=== PATIENT | male | born 1960 | race Two or more races ===

== ENCOUNTER 2016-08-29 19:03 | Inpatient (IN) | payer MEDICARE, OTHER ==
[2016-08-29] MEDS ORDERED: Haloperidol Lactate 5 mg/mL 1mL Vial IM ONE (19:22)
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
[2016-08-29] MEDS ORDERED: Haloperidol Lactate 5 mg/mL 1mL Vial ONE (19:28)
[2016-08-29 20:50] LABS: % BASOPHILS 0.4 % (0.0-2.0); % EOSINOPHILS 0.2 % (0.0-5.0); % LYMPHOCYTES 7.7 % (20.0-50.0); % MONOCYTES 7.9 % (2.0-10.0); % NEUTROPHILS 83.8 % (40.0-80.0); HEMATOCRIT 39.6 % (39.0-49.0); HEMOGLOBIN 13.6 gm/dL (13.2-17.3); MEAN CELL VOLUME 88.9 fl (80-99); MEAN CORPUSCULAR HEMOGLOBIN 30.5 pg (26.0-30.0); MEAN CORPUSCULAR HGB CONC 34.3 pg (28.0-36.0); MEAN PLATELET VOLUME 7.2 fl; NEUTROPHILE ABSOLUTE 11.1 Th/cmm (1.8-8.0); PLATELET COUNT 167 Th/cmm (150-400); RED BLOOD COUNT 4.45 Mil/cmm (4.30-5.70); WHITE BLOOD COUNT 13.2 Th/cmm (4.8-10.8)
[2016-08-29 21:02] LABS: ACETAMINOPHEN < 10.0 ug/mL (10.0-30.0); ALB/GLOB RATIO 1.1 (1.0-1.8); ALKALINE PHOSPHATASE 58 U/L (34-104); ANION GAP 12.2 (7.0-16.0); BILIRUBIN,TOTAL 0.9 mg/dL (0.3-1.0); BUN - UREA NITROGEN 14 mg/dL (7-25); BUN/CREATININE RATIO 11.7; CALCIUM SERUM 9.2 mg/dL (8.6-10.3); CARBON DIOXIDE 20.5 mEq/L (21.0-31.0); CHLORIDE 104 mEq/L (98-107); CREATININE - SERUM 1.2 mg/dL (0.7-1.3); GLUCOSE 207 mg/dL (70-105); POTASSIUM SERUM 3.7 mEq/L (3.5-5.1); SGOT 233 U/L (13-39); SGPT/ALT 46 U/L (7-52); SODIUM SERUM 133 mEq/L (136-145)
[2016-08-29 22:12] LABS: AMPHETAMINE URINE NEGATIVE (NEGATIVE); BARBITURATES URINE POSITIVE (NEGATIVE)
[2016-08-30 00:52] VITALS: BP 123/79
[2016-08-30] MEDS ORDERED: Magnesium Hydroxide (MOM) 30 mL UDC PO PRN (00:53)
[2016-08-30] MEDS ORDERED: Maalox 30 mL Cup PO PRN (00:53)
[2016-08-30] MEDS: Multivitamin Tab PO SCH (10:30)
--- NOTE | 2016-08-30 15:27 | Diagnostic Imaging Report ---
CT scan of the brain without intravenous contrast HISTORY: Headache, trauma Total DLP equals 745 CTDI equals 37.3 Axial sections were obtained from the base of the skull to the vertex. There is a normal ventricular system size. There is prominence of cerebral sulci and subarachnoid cisterns particularly about the frontal region of the brain collecting a degree of atrophy. No acute parenchymal abnormalities. No intracerebral hemorrhage. No mass effect or shift of midline structures. No extra-axial masses or abnormal fluid collections. IMPRESSION: 1. No acute abnormalities 2. Mild frontal cerebral atrophy
--- NOTE | 2016-08-30 15:28 | Diagnostic Imaging Report ---
CT scan cervical spine HISTORY: Pain, trauma Total DLP equals 494 CTDI equals 23.2 Axial sections were obtained through the cervical spine. Additional sagittal and coronal reformatted images are provided. There is a scoliosis of the cervical spine convexity to the left. This may be positional. Alignment is normal. No acute abnormalities. No fractures. The margins of the cervical spinal cord cannot be clearly visualized. Small spur formation noted about the anterior margins of the bodies of C4-5. The prevertebral soft tissues appear normal. IMPRESSION: 1. No acute abnormalities 2. Degenerative changes
--- NOTE | 2016-08-30 19:21 | History & Physical ---
The patient is a 55-year-old male. PAST MEDICAL HISTORY: Significant for seizure disorder, hypertension, COPD, coronary artery disease, peptic ulcer disease, arthritis, osteoporosis and hypothyroidism. SOCIAL HISTORY: Positive smoking. REVIEW OF SYSTEMS: The patient is very confused, no vomiting, no diarrhea, no melena or hematochezia. PHYSICAL EXAMINATION: GENERAL: Average male in no respiratory distress. VITAL SIGNS: Include a blood pressure of 110/70, respiratory rate of 18. SKIN: Show no cellulitis. HEENT: Normal conjunctivae. NECK: Supple. LUNGS: Shows bilateral rhonchi. ____ crepitations. No bronchial breathing. HEART: ____ present. ABDOMEN: Soft, minimal epigastric tenderness. Bowel sounds present. EXTREMITIES: Arthritis. NEUROLOGIC: The patient is awake with no focal motor deficit. LABORATORY DATA: Include sodium 133, potassium 3.7, chloride 104, bicarbonate ____, BUN 14, creatinine 1.2, glucose of 207, ALT of 233, total bilirubin 0.9. MEDICAL DIAGNOSES: Include diabetes mellitus, hypertension, seizure disorder, hypothyroidism, peptic ulcer disease, arthritis, osteoporosis, chronic obstructive pulmonary disease and coronary artery disease. TREATMENT PLAN: The patient is on Dilantin, Tegretol, Pepcid, Norvasc and Motrin. The patient's blood sugar will be carefully monitored, has no prior history of diabetes. He will have 1800 calories ADA diet. Thank you, Dr. Blair. JOB# [id number]
--- NOTE | 2016-08-31 01:47 | Psychosocial Evaluation ---
IDENTIFYING DATA: The patient is a 55-year-old male resident of [facility]. JUSTIFICATION OF HOSPITALIZATION: The patient is admitted here for his acute agitation. CHIEF COMPLAINT: "I do not know. I should not be in here." HISTORY OF PRESENT ILLNESS: This is the first psychiatric hospitalization to [facility] for this 55-year-old who has been diagnosed to have schizophrenia, chronic paranoid type and the patient is reported to have been getting easily upset, agitated and anxious. The patient has been referred over here for stabilization. I reviewed the chart and tried to interview the patient, but the patient is very irritable, angry and has been screaming and yelling and stating that he should not be in here. The patient has to be given a dose of Haldol in the Emergency Room and along with Ativan. The patient has been brought over here for stabilization. Review of the chart indicated that the patient has been on Invega Sustenna possibly because of the noncompliance with the medications. The patient's sleep and appetite prior to the hospitalization are reported to be fair. The patient's physical examination is requested to be done by Dr. Hopkins and is noted to be significant for hypertension, COPD and hypothyroidism. STRENGTH AND ASSETS: The patient seems to be in good physical health, but is motivated for treatment. MENTAL STATUS EXAMINATION: The patient is a 55-year-old, looking his stated age, superficially cooperative. Eye contact is poor. Mood is noted to be irritable. Affect is constricted. Insight and judgment at this time are noted to be impaired. Impulse control seems to be poor. The patient has paranoid delusions, but denies any command hallucinations. The patient is uncooperative. I could not test the patient's cognitive abilities. The patient's attention span and concentration are noted to be poor. The patient is screaming and yelling during the interview. The patient's behavior is actually a danger to self at this time. DIAGNOSTIC IMPRESSION: AXIS I: Schizophrenia, chronic paranoid type with acute exacerbation. AXIS II: None. AXIS III: Hypertension, COPD and hypothyroidism. IMMEDIATE TREATMENT PLAN: The patient is going to be started on the Risperdal 1 mg b.i.d. and will be closely monitored. Once stabilized, the patient is going to be discharged ____ to be followed up at the [facility] by Dr. ____. JOB# [id number]
[2016-08-31] MEDS: Levothyroxine 0.025 Mg Tab PO SCH (06:41)
[2016-08-31] MEDS: Multivitamin Tab PO SCH (09:07)
--- NOTE | 2016-08-31 22:09 | Progress Notes ---
PSYCHIATRIC PROGRESS NOTE TIME PATIENT SEEN: 10:00 a.m. SUBJECTIVE: Staff was spoken to. The patient is interviewed. Mood is noted to be irritable. Affect is constricted. Coping skills are noted to be poor. Sleep and appetite are also noted to be poor. The patient has been having difficult time to cope with the stress. The patient has been insisting on having his way. The patient is taking only Risperdal and has been refusing to take any other medications. The patient continues to be grossly psychotic. ASSESSMENT: The patient is still psychotic and impulsive. PLAN: To continue the patient with the supportive therapy and followup. JOB# [id number]
[2016-09-01] MEDS: Levothyroxine 0.025 Mg Tab PO SCH (07:07)
[2016-09-01] MEDS: Multivitamin Tab PO SCH (08:43)
[2016-09-01] MEDS ORDERED: Haloperidol Lactate 5 mg/mL 1mL Vial ONE (08:44)
[2016-09-01] MEDS ORDERED: Haloperidol Lactate 5 mg/mL 1mL Vial IM ONE (08:50)
--- NOTE | 2016-09-01 19:40 | Progress Notes ---
PSYCHIATRIC PROGRESS NOTE TIME PATIENT SEEN: 6:45 a.m. SUBJECTIVE: Staff was spoken to. The patient is interviewed. Mood is noted to be irritable. Affect is constricted. Insight and judgment at this time are noted to be still impaired. Impulse control seems to be poor. Coping skills are also noted to be very poor. The patient has been screaming and yelling. The patient is stating that he does not need any other medication. He continues to be very paranoid and is still responding to internal stimuli. The patient has been having difficult time to cope with the stress at this time. The patient is not ready to be discharged to a lower level of care in view of his agitation and psychotic behavior. ASSESSMENT: The patient is still psychotic. PLAN: To continue the patient with the current medications and follow up. JOB# [id number]
--- NOTE | 2016-09-01 23:23 | Consultation ---
REQUESTING PHYSICIAN: Tiana Blair M.D. CONSULTING PSYCHOLOGIST: oJsé Olivo, Ph.D. TYPE OF CONSULTATION: Psychology. HISTORY OF PRESENT ILLNESS: The patient is a 55-year-old male who is being admitted for acute agitation. The patient has previously been diagnosed with schizophrenia, chronic paranoid type according to review of medical records. The following is by review of record as well as the patient's self report. According to review, the patient has been getting easily agitated and was referred here for stabilization. The patient presents as irritable and angry as well as yelling at this content writer at the time of the evaluation. The patient states that he should not be hospitalized. According to record, the patient was given Haldol in the ER along with Ativan and then transferred here to the geropsychiatric unit. The record also indicates that the patient has been noncompliant with medications. The patient is not responding to questions about suicidal ideation, plan or intention. He continues to be yelling and verbally abusive as well as uncontrollably angry. De-escalation was provided. PAST MEDICAL HISTORY: Please see history and physical. PAST PSYCHIATRIC HISTORY: The patient has no history of previous hospitalizations here at [facility]; however, the record indicates the patient has had previous psychiatric hospitalizations and has been under the care of a psychiatrist in the past. CURRENT MEDICATIONS: Please see medication reconciliation sheet. ALLERGIES: No known drug allergies. SUBSTANCE ABUSE HISTORY: The patient did not answer questions about illicit drug use or alcohol or tobacco use. PSYCHOSOCIAL HISTORY: The patient did not answer these questions regarding marital status, educational and occupational history or sikhism affiliation. The patient did not answer questions about family history. The patient is possibly conserved. Medical records will be reviewed by social work program coordinator. MENTAL STATUS EXAMINATION: The patient appears to be his stated age. The patient's attitude is resistant and uncooperative. Eye contact is poor. Speech is loud. The patient is yelling on and off intermittently, most of the clinical interview. Mood is irritable and anxious. Affect is constricted. Thought process shows him to be confused. The patient did not answer questions about auditory or visual hallucinations; however, the patient is presenting with paranoid ideation. The patient did not answer questions to assess for cognitive abilities, i.e., concentration which appears to be poor. The patient is poorly redirectable cognitively and behaviorally. The patient did not participate in the memory assessment. The patient is alert and oriented to self only. The patient's behavior may possibly be a danger to himself at this time. The patient seems to be uncontrollable with respect to behavioral redirection. Impulse control is impaired. The patient did not participate in any evaluation regarding insight and judgment. It appears insight into illness is poor. Judgment is impaired. DIAGNOSTIC IMPRESSION: AXIS I: History of schizophrenia, chronic paranoid type with acute exacerbation. Impulse control disorder, not otherwise specified. AXIS II: Deferred. AXIS III: Hypertension, chronic obstructive pulmonary disease, hypothyroidism. TREATMENT PLAN: The patient has been seen by Dr. Blair for psychiatric evaluation and for the management of the patient's psychotropic medications. The patient is being started on Risperdal 1 mg b.i.d. and will be closely monitored. The patient will most likely return to his previous placement. We will provide reality testing, reality orientation, reality differentiation and reality integration to assist the patient in focusing on reality based thoughts versus delusional and to become compliant with his medication and all aspects of his care and treatment plan. We will provide coping strategies for chronic long-term severe mental illness. Thank you, Dr. Blair for this consult and the opportunity to participate with you in your patient's care. JOB# [id number] MEY
[2016-09-02] MEDS: Levothyroxine 0.025 Mg Tab PO SCH (06:59)
[2016-09-02] MEDS: Multivitamin Tab PO SCH (10:05)
--- NOTE | 2016-09-03 02:49 | Progress Notes ---
TIME PATIENT SEEN: 07:15 a.m. SUBJECTIVE: Staff was spoken to. The patient is interviewed. Mood is noted to be irritable. Affect is constricted. The patient is still testing the limits. The patient is currently on Risperdal and Tegretol and has been able to tolerate the medications, but the patient at times has been trying to refuse and the patient needs to be redirected and encouraged to comply with the treatment at this time. ASSESSMENT: The patient is still psychotic and impulsive. PLAN: To continue the patient with Risperdal and Tegretol and followup. JOB# [id number]
[2016-09-03] MEDS: Levothyroxine 0.025 Mg Tab PO SCH (06:39)
[2016-09-03] MEDS: Multivitamin Tab PO SCH (09:12)
[2016-09-03 09:54] LABS: ALKALINE PHOSPHATASE 61 U/L (34-104); ANION GAP 8.6 (7.0-16.0); BILIRUBIN,TOTAL 0.7 mg/dL (0.3-1.0); BUN - UREA NITROGEN 13 mg/dL (7-25); BUN/CREATININE RATIO 14.4; CALCIUM SERUM 9.4 mg/dL (8.6-10.3); CARBON DIOXIDE 28.2 mEq/L (21.0-31.0); CHLORIDE 104 mEq/L (98-107); CREATININE - SERUM 0.9 mg/dL (0.7-1.3); GLUCOSE 125 mg/dL (70-105); POTASSIUM SERUM 4.8 mEq/L (3.5-5.1); SGOT 74 U/L (13-39); SGPT/ALT 46 U/L (7-52); SODIUM SERUM 136 mEq/L (136-145)
--- NOTE | 2016-09-03 23:26 | Progress Notes ---
TIME PATIENT SEEN: 9:30 a.m. SUBJECTIVE: Staff was spoken to. The patient is interviewed. Mood is noted to be irritable. Affect is constricted. Insight and judgment are very impaired. Impulse control seems to be poor. Coping skills are also noted to be poor. The patient has been having difficult time to cope with the stress. No side effects to the medications are noted. The patient has been refusing and has to be ____ to take the medication. ASSESSMENT: The patient is still psychotic. PLAN: To continue the patient with the current medications and followup. JOB# [id number]
[2016-09-04] MEDS: Levothyroxine 0.025 Mg Tab PO SCH (06:36)
[2016-09-04] MEDS: Multivitamin Tab PO SCH (08:48)
[2016-09-05] MEDS: Levothyroxine 0.025 Mg Tab PO SCH (06:43)
[2016-09-05] MEDS: Multivitamin Tab PO SCH (08:47)
--- NOTE | 2016-09-05 18:20 | Progress Notes ---
PSYCHIATRIC PROGRESS NOTE TIME PATIENT IDENTIFICATION: 1:00 p.m. SUBJECTIVE: Staff was spoken to. The patient is interviewed. Mood is noted to be irritable. Affect is constricted. The patient is still refusing to comply with the medication. The patient has been taking medication on and off. The patient is not presenting with any straight answers. The patient has been having difficult time to cope with the stress. No side effects to the medications are noted at this time. ASSESSMENT: The patient is still psychotic and impulsive. PLAN: To continue the patient with the current medications. I encouraged the patient to verbalize the concerns rather than to act out. JOB# [id number]
--- NOTE | 2016-09-06 06:13 | Progress Notes ---
TIME PATIENT SEEN: 15:00 a.m. SUBJECTIVE: Staff was spoken to. The patient is interviewed. Mood is noted to be irritable. Affect is constricted. Coping skills are noted to be poor. Sleep and appetite are also noted to be poor. The patient is taking medications on and off, but the patient has to be really pressed to take the medications. If the patient continues to be refusing to take the medications this way the patient is going to be possibly placed on Haldol and Haldol Decanoate is going to be considered. The patient still continues to be paranoid, but no aggressive behavior is reported so far. Sleep and appetite are also noted to be fair. Personal hygiene; however, continues to be very poor. JOB# [id number]
[2016-09-06] MEDS: Levothyroxine 0.025 Mg Tab PO SCH (06:47)
[2016-09-06] MEDS: Multivitamin Tab PO SCH (08:06)
--- NOTE | 2016-09-07 01:04 | Progress Notes ---
TIME PATIENT SEEN: 10:30 a.m. SUBJECTIVE: Staff was spoken to. The patient is interviewed. Mood is noted to be anxious. The patient's coping skills are noted to be poor. The patient has paranoia since the patient has been placed on the Haldol. The patient has been doing a little better. No side effects to the medications are noted at this time. The patient's sleep and appetite are noted to be fair. The patient's coping skills are noted to be improving. ASSESSMENT: The patient's psychosis is resolving. PLAN: To discharge the patient possibly tomorrow for placement. JOB# [id number]
[2016-09-07] MEDS: Levothyroxine 0.025 Mg Tab PO SCH (07:06)
[2016-09-07] MEDS: Multivitamin Tab PO SCH (08:32)
--- NOTE | 2016-09-08 06:00 | Progress Notes ---
PSYCHIATRIC PROGRESS NOTE TIME PATIENT SEEN: 10:00 a.m. SUBJECTIVE: Staff was spoken to. The patient is interviewed. Mood is noted to be anxious. Affect is appropriate. Not suicidal or homicidal. Continues to be paranoid, but has been reluctant to take the IM medications, but no side effects to the medications are noted so far. The patient has been willing to comply with the Risperdal. ASSESSMENT: The patient is stabilizing. PLAN: To discharge the patient to the nursing home facility for further followup by ____ and Dr. Hopkins. JOB# [id number]
[2016-09-14 04:44] LABS: HEP DELTA VIRUS AG NEGATIVE
--- NOTE | 2016-11-01 23:38 | Discharge Summary ---
IDENTIFYING DATA: The patient is a 55-year-old male resident of [facility]. JUSTIFICATION OF HOSPITALIZATION: The patient is admitted here on a voluntary basis for acute agitation. CHIEF COMPLAINT: "I do not know I should not be here." DIAGNOSIS AT THE TIME OF THE ADMISSION: Schizophrenia, chronic paranoid type with acute exacerbation. SECONDARY DIAGNOSIS: None. MEDICAL DIAGNOSES: Hypertension, chronic obstructive pulmonary disease, hypothyroidism. HISTORY OF PRESENT ILLNESS: Please refer to August 30, 2016, dictation done by me. On physical examination at the time of the admission was done by Dr. Hopkins and is significant for diabetes mellitus, hypertension, seizure disorder, hypothyroidism, peptic ulcer disease, arthritis, coronary artery disease. Lab studies done during the hospitalization have been reviewed by Dr. Hopkins. HOSPITAL COURSE AND RESPONSE TO TREATMENT: The patient has been observed on inpatient unit, provided with supportive psychotherapy. The patient has been closely monitored. The patient has been continued on the Tegretol, which is given 200 mg in the morning and the patient has been continued on the Aricept, levothyroxine has been given 25 mg on a daily basis. The patient has been also given the Risperdal 1 mg twice a day for his psychiatric symptoms. The patient has been encouraged to participate in the groups and verbalized the concerns. Since the patient is having agitated behavior, has been maintained with Ativan and Benadryl on a p.r.n. basis. With these medications, the patient has been observed and was noted to be tolerating well. The patient was finally discharged on September 07, 2016, with recommendation that he is going [facility] be [facility] and the patient has been discharged to [facility] and the patient is going to be followed up by Dr. strauss. PROGNOSIS: At the time of discharge noted to be fair with the treatment. DIAGNOSIS AT THE TIME OF THE DISCHARGE: AXIS I: Schizophrenia, chronic paranoid type. JOB# [id number] MEY
== END 2016-09-07 16:15 | DRG 885 ==
LOC: ER 19:03 → EDBD 19:03 → GERO 22:29
PROVIDERS: ADMIT Psychiatry & Neurology Psychiatry; ATTEND Psychiatry & Neurology Psychiatry
DX: F20.0 Paranoid schizophrenia (principal); F03.90 Unspecified dementia, unspecified severity, without behavioral disturbance, psychotic disturbance, mood disturbance, and anxiety; I10 Essential (primary) hypertension; J45.909 Unspecified asthma, uncomplicated; S00.01XA Abrasion of scalp, initial encounter; Y93.89 Activity, other specified; Y92.89 Other specified places as the place of occurrence of the external cause; Y99.8 Other external cause status; G40.909 Epilepsy, unspecified, not intractable, without status epilepticus; E03.9 Hypothyroidism, unspecified; K27.9 Peptic ulcer, site unspecified, unspecified as acute or chronic, without hemorrhage or perforation; M19.90 Unspecified osteoarthritis, unspecified site; M81.0 Age-related osteoporosis without current pathological fracture; E11.9 Type 2 diabetes mellitus without complications; J44.9 Chronic obstructive pulmonary disease, unspecified
CPT/HCPCS: 36415-UA; 70450-TC; 72125-TC; 80053-TC; 80156-TC; 80164-TC; 80320-TC; 80329-TC; 83036-90; 84439-90; 84443-TC; 85025-TC; 87380-90; 90899; 93005; J1200; J1630; J2060; Z7610